=== PATIENT | male | born 1995 | race Caucasian/White ===

== ENCOUNTER 2022-01-15 23:52 | Emergency (ER) | payer OTHER ==
[2022-01-16] MEDS ORDERED: PROVENTIL HFA6.7 GM INH (01:38)
[2022-01-16] MEDS ORDERED: IBUPROFEN600 MG PO (01:38)
== END 2022-01-16 01:57 | disposition home or self-care (01) ==
LOC: ER1 23:52
DX: U07.1 COVID-19 (principal)
CPT/HCPCS: 0240U; 99283